=== PATIENT | female | born 1995 | race Caucasian/White ===

== ENCOUNTER 2021-07-22 12:54 | Emergency (ER) | payer OTHER ==
[~2021-07-22] VITALS: Ht 190.5 cm; Wt 86.4 kg
[2021-07-22 13:12] VITALS: TEMP 97.4
[2021-07-22 13:40] LABS: BASO # 0.1 K/mm3 (0.0-0.2); BASO % 0.9 % (0.0-2.0); EOS # 0.1 K/mm3 (0.0-0.7); GRAN % 71.9 % (42.2-75.2); HEMATOCRIT 41.7 % (37.0-47.0); HEMOGLOBIN 14.1 g/dl (12.5-16.0); LYMPH # 1.2 K/mm3 (1.2-3.4); LYMPH % 16.9 % (20.0-51.0); MEAN CELL VOLUME 89 fl (80.0-100.0); MEAN CORPUSCULAR HEMOGLOBIN 30 pg (27.0-31.0); MEAN CORPUSCULAR HGB CONC 34 g/dl (33.0-37.0); MEAN PLATELET VOLUME 12.6 fl (7.4-10.4); MONO # 0.6 K/mm3 (0.1-0.6); MONO % 8.9 % (1.7-9.3); PLATELET COUNT 167 K/mm3 (130-400); RED BLOOD COUNT 4.69 M/mm3 (4.10-5.30); REDCELL DISTRIBUTION WIDTH-CV 13.2 % (11.5-14.5)
[2021-07-22] MEDS ORDERED: NORCO 325 MG-51 TAB PO (16:50)
[2021-07-22 17:02] VITALS: BP 130/83; PULSE 69
[2021-07-22 19:52] LABS: COLLECTION METHOD CLEAN CATCH
[2021-07-22 20:01] LABS: MUCOUS Present /lpf; PH 5 (5-8); SQUAMOUS EPITHELIAL 0-2 /hpf; URINE APPEARANCE Hazy; URINE BACTERIA Rare /hpf; URINE BILIRUBIN Negative (NEGATIVE); URINE BLOOD 2+ (NEGATIVE); URINE COLOR Yellow; URINE GLUCOSE Negative (NEGATIVE); URINE KETONE 1+ (NEGATIVE); URINE LEUKOCYTE ESTERASE Negative (NEGATIVE); URINE NITRATE Positive (NEGATIVE); URINE PROTEIN(semi-quant) Negative (NEGATIVE); URINE RBC 0-2 /hpf; URINE UROBILINOGEN Negative (NEGATIVE)
== END 2021-07-22 17:11 | disposition home or self-care (01) ==
LOC: COL.ER 12:54
PROVIDERS: Physician Assistant
DX: N83.201 Unspecified ovarian cyst, right side (principal); Z32.02 Encounter for pregnancy test, result negative
CPT/HCPCS: J1885; J7030; Q9967

== ENCOUNTER 2024-06-30 18:06 | Emergency (ER) | payer BC ==
[~2024-06-30] VITALS: Ht 188 cm; Wt 113.6 kg
[~2024-06-30 18:06] MED LIST: NORCO 325 MG-51 TAB PO
[2024-06-30 18:24] VITALS: TEMP 98.9
[2024-06-30] MEDS ORDERED: Ondansetron 4 MG/2 ML VIAL IV ONE (18:45)
[2024-06-30] MEDS ORDERED: NS 1,000 ML IV ONE (18:45)
[2024-06-30] MEDS ORDERED: Ketorolac 30 MG/ML VIAL IV ONE (18:45)
[2024-06-30 19:18] LABS: COLLECTION METHOD CLEAN CATCH
[2024-06-30 19:24] LABS: BASO # 0.1 K/mm3 (0.0-0.2); BASO % 0.8 % (0.0-2.0); EOS # 0.1 K/mm3 (0.0-0.7); EOS % 1.5 % (0.0-4.0); GRAN # 5.9 K/mm3 (1.4-6.5); GRAN % 62.2 % (42.2-75.2); HEMATOCRIT 43.4 % (37.0-47.0); HEMOGLOBIN 14.5 g/dl (12.5-16.0); LYMPH # 2.6 K/mm3 (1.2-3.4); LYMPH % 27.3 % (20.0-51.0); MEAN CELL VOLUME 90 fl (80.0-100.0); MEAN CORPUSCULAR HEMOGLOBIN 30 pg (27-31); MEAN CORPUSCULAR HGB CONC 33 g/dl (33.0-37.0); MEAN PLATELET VOLUME 12.4 fl (7.4-10.4); MONO # 0.7 K/mm3 (0.1-0.6); MONO % 7.8 % (1.7-9.3); PLATELET COUNT 172 K/mm3 (130-400); REDCELL DISTRIBUTION WIDTH-CV 13.7 % (11.5-14.5)
[2024-06-30 19:29] LABS: PH 5.5 (5.0-8.5); URINE APPEARANCE CLOUDY (CLEAR/HAZY); URINE BLOOD 1+ (NEGATIVE); URINE COLOR Dark Yellow (YELLOW); URINE GLUCOSE NEGATIVE (NEGATIVE); URINE KETONE NEGATIVE (NEGATIVE); URINE NITRATE NEGATIVE (NEGATIVE); URINE PROTEIN(semi-quant) 1+ (NEGATIVE)
[2024-06-30 19:42] LABS: ALBUMIN 4.2 g/dL (3.5-5.0); BILIRUBIN,TOTAL 0.3 mg/dL (0.2-1.2); C-REACTIVE PROTEIN 0.87 mg/dL (0.00-0.50); CALCIUM 9.7 mg/dL (8.4-10.2); CREATININE, serum 0.94 mg/dL (0.57-1.11)
[2024-06-30 19:52] LABS: POTASSIUM 4.2 mEq/L (3.5-4.5)
[2024-06-30] MEDS ORDERED: Iohexol 300 - 100 ML VIAL IV ONE (19:54)
[2024-06-30] MEDS ORDERED: NS 50 ML IV SCH (19:55)
[2024-06-30] MEDS ORDERED: FLEXERIL 1010 MG/TAB PO (20:57)
[2024-06-30] MEDS ORDERED: NAPROSYN500 MG PO (20:57)
[2024-06-30] MEDS ORDERED: Home Cyclobenzaprine 10 MG #2 TABS/PACK PO ONE (21:00)
[2024-06-30 21:15] VITALS: BP 120/66; PULSE 81
== END 2024-06-30 21:15 | disposition home or self-care (01) ==
LOC: COL.ER 18:06
PROVIDERS: Emergency Medicine
DX: R10.32 Left lower quadrant pain (principal); M54.16 Radiculopathy, lumbar region; R11.2 Nausea with vomiting, unspecified; Z87.42 Personal history of other diseases of the female genital tract
CPT/HCPCS: J1885; J2405; J7030; Q9967